=== PATIENT | female | born 1975 | race Hispanic/Latino ===

== ENCOUNTER 2024-08-07 07:35 | Outpatient (CLI) | payer BC ==
[2024-08-07] MEDS ORDERED: Iopamidol 370 76% 100 ML VIAL ONE (12:59)
== END 2024-08-07 07:36 | disposition home or self-care (01) ==
LOC: CSHCT 07:35
PROVIDERS: ATTEND Family Medicine
DX: N30.01 Acute cystitis with hematuria (principal); R10.32 Left lower quadrant pain; D73.9 Disease of spleen, unspecified; K76.0 Fatty (change of) liver, not elsewhere classified
CPT/HCPCS: 74177; Q9967

== ENCOUNTER 2025-06-16 08:29 | Outpatient (CLI) | payer BC | END 2025-06-16 08:30 | disposition home or self-care (01) | LOC: CSHMRI 08:29 | PROVIDERS: ATTEND Internal Medicine Gastroenterology | DX: K75.81 Nonalcoholic steatohepatitis (NASH) (principal); K21.9 Gastro-esophageal reflux disease without esophagitis; K58.1 Irritable bowel syndrome with constipation; D73.4 Cyst of spleen | CPT/HCPCS: 74183 ==